=== PATIENT | female | born 1985 | race Caucasian/White ===

== ENCOUNTER 2019-06-09 09:16 | Emergency (ER) | payer SELFPAY ==
[~2019-06-09] VITALS: Ht 152.4 cm; Wt 104.0 kg
[2019-06-09] MEDS ORDERED: iron (10:05)
[2019-06-09] MEDS ORDERED: KETOROLAC 60MG/2ML VIAL IM ONE (11:30)
[2019-06-09 13:08] VITALS: BP 110/89
== END 2019-06-09 12:55 | disposition home or self-care (01) ==
LOC: ER 10:40
DX: S56.212A Strain of other flexor muscle, fascia and tendon at forearm level, left arm, initial encounter (principal); D64.9 Anemia, unspecified; X58.XXXA Exposure to other specified factors, initial encounter; Y93.9 Activity, unspecified; Y92.9 Unspecified place or not applicable; Z98.51 Tubal ligation status
CPT/HCPCS: 96372; 99283; J1885